=== PATIENT | female | born 1965 | race Caucasian/White ===

== ENCOUNTER → 2018-12-14 | Outpatient (REF) | payer OTHER | LOC: M LAB REF 12:41 | PROVIDERS: ATTEND Physician Assistant | DX: R30.0 Dysuria (principal) ==

== ENCOUNTER 2022-01-16 14:00 | Emergency (ER) | payer OTHER ==
[~2022-01-16] VITALS: Ht 170.2 cm; Wt 55.5 kg
[2022-01-16 14:37] LABS: BASO % 0.6 % (0.0-1.0); EOS # 0.1 10^3/uL (0.0-0.5); HEMOGLOBIN 14.1 g/dl (12.0-15.5); LYMPH # 1.7 10^3/uL (1.5-5.0); LYMPH % 26.5 % (24.0-44.0); MEAN CORPUSCULAR HEMOGLOBIN 31.1 pg (27.0-33.0); MEAN CORPUSCULAR HGB CONC 33.6 g/dl (32.0-36.5); MEAN CORPUSCULAR VOLUME 92.5 fl (80.0-96.0); MONO # 0.6 10^3/uL (0.0-0.8); MONO % 10.1 % (2.0-8.0); NEUTROPHILS # 3.8 10^3/uL (1.5-8.5); NEUTROPHILS % 60.5 % (36.0-66.0); PLATELET COUNT, AUTOMATED 272 10^3/uL (150-450); RED BLOOD COUNT 4.54 10^6/uL (4.00-5.40); WHITE BLOOD COUNT 6.4 10^3/uL (4.0-10.0)
[2022-01-16] MEDS ORDERED: NITROGLYCERIN 0.4 MG SUBL TABLET SL STA (14:44)
[2022-01-16] MEDS ORDERED: ASPIRIN 81 MG CHEW TABLET PO ONE (14:45)
[2022-01-16 15:06] LABS: CK-MB VALUE MASS 1.8 NG/ML (<3.6); MB/CK RELATIVE INDEX 3.91 (< OR =4)
[2022-01-16 15:14] LABS: ALBUMIN 3.8 GM/DL (3.2-5.2); ALT/SGPT 21 U/L (12-78); BILIRUBIN,DIRECT < 0.1 MG/DL (0.0-0.2); BILIRUBIN,TOTAL 0.3 MG/DL (0.2-1.0); BLOOD UREA NITROGEN 13 MG/DL (7-18); CALCIUM LEVEL 9.4 MG/DL (8.5-10.1); CARBON DIOXIDE LEVEL 29 MEQ/L (21-32); CHLORIDE LEVEL 107 MEQ/L (98-107); CREATININE FOR GFR 0.76 MG/DL (0.55-1.30); GLOMERULAR FILTRATION RATE > 60.0 (>51); GLUCOSE, FASTING 111 MG/DL (70-100); LIPASE 842 U/L (73-393); NT-PRO BNP 99 PG/ML (<125); POTASSIUM SERUM 4.1 MEQ/L (3.5-5.1); SODIUM LEVEL 139 MEQ/L (136-145); THYROID STIMULATING HORMONE 0.797 uIU/ML (0.358-3.740); TOTAL PROTEIN 6.4 GM/DL (6.4-8.2)
[2022-01-16] MEDS ORDERED: ISOVUE-370 76% 100ML VIAL As Ordered ONE (15:33)
[2022-01-16] MEDS ORDERED: NITROGLYCERIN 0.4 MG SUBL TABLET SL PRN (15:45)
[2022-01-16 15:47] VITALS: BP 148/84
[2022-01-16 16:16] LABS: CK-MB VALUE MASS 1.6 NG/ML (<3.6)
[2022-01-16 17:30] VITALS: BP 158/78
== END 2022-01-16 17:36 | disposition home or self-care (01) ==
LOC: M ED 14:00
DX: R07.9 Chest pain, unspecified (principal); R91.1 Solitary pulmonary nodule; E78.49 Other hyperlipidemia; D35.02 Benign neoplasm of left adrenal gland; I45.19 Other right bundle-branch block
CPT/HCPCS: 36415; 71045; 71275; 80048; 80076; 82550; 82553; 83690; 83880; 84443; 84484; 85025; 93005; 93041; 94760; 99285; Q9967

== ENCOUNTER → 2022-02-12 | Outpatient (REF) | payer OTHER | LOC: M WUC 20:06 | PROVIDERS: ATTEND Physician Assistant | DX: N30.01 Acute cystitis with hematuria (principal) ==

== ENCOUNTER → 2022-03-13 | Outpatient (CLI) | payer OTHER ==
[2022-03-13 11:00] LABS: BLOOD UREA NITROGEN 12 MG/DL (7-18); CALCIUM LEVEL 9.5 MG/DL (8.5-10.1); CARBON DIOXIDE LEVEL 29 MEQ/L (21-32); CHLORIDE LEVEL 107 MEQ/L (98-107); CREATININE FOR GFR 0.62 MG/DL (0.55-1.30); GLOMERULAR FILTRATION RATE > 60.0 (>51); GLUCOSE, FASTING 96 MG/DL (70-100); POTASSIUM SERUM 4.1 MEQ/L (3.5-5.1); SODIUM LEVEL 138 MEQ/L (136-145)
[2022-03-13 11:16] LABS: CORTISOL AM 1.7 UG/DL (4.3-22.4)
== END ==
LOC: M LAB 08:25
PROVIDERS: ATTEND Nurse Practitioner Family
DX: D35.02 Benign neoplasm of left adrenal gland (principal)

== ENCOUNTER → 2022-04-06 | Outpatient (REF) | payer OTHER ==
[2022-04-09 21:09] LABS: METANEPHRINE TOTAL URINE 70 ug/L (Undefined); METANEPHRINE URINE 133 ug/24 hr (36-209); NORMETANEPHRINE TOTAL URINE 133 ug/L (Undefined); NORMETANEPHRINE URINE 253 ug/24 hr (131-612)
== END ==
LOC: M LAB REF 09:36
PROVIDERS: ATTEND Nurse Practitioner Family
DX: D35.02 Benign neoplasm of left adrenal gland (principal)

== ENCOUNTER → 2022-04-11 | Outpatient (CLI) | payer OTHER ==
[~2022-04-11] MED LIST: ISOVUE-370 76% 100ML VIAL As Ordered ONE
== END ==
LOC: M RAD 14:57
PROVIDERS: ATTEND Nurse Practitioner Family
DX: D35.02 Benign neoplasm of left adrenal gland (principal); K76.89 Other specified diseases of liver; R91.1 Solitary pulmonary nodule
CPT/HCPCS: 74170; Q9967

== ENCOUNTER → 2022-07-23 | Outpatient (CLI) | payer OTHER ==
[2022-07-23 15:34] VITALS: BP 158/86
== END ==
LOC: M WHCPRO 14:45
PROVIDERS: ATTEND Surgery
DX: R92.8 Other abnormal and inconclusive findings on diagnostic imaging of breast (principal); N63.11 Unspecified lump in the right breast, upper outer quadrant
CPT/HCPCS: 19083; 77065; 88305; G0279

== ENCOUNTER → 2022-07-24 | Outpatient (CLI) | payer OTHER | LOC: M PLAIMG 11:28 | PROVIDERS: ATTEND Internal Medicine Pulmonary Disease | DX: R91.1 Solitary pulmonary nodule (principal); D35.02 Benign neoplasm of left adrenal gland; R91.8 Other nonspecific abnormal finding of lung field ==

== ENCOUNTER → 2022-07-30 | Outpatient (CLI) | payer OTHER ==
[2022-07-30 18:02] LABS: BLOOD UREA NITROGEN 13 MG/DL (9-23); CALCIUM LEVEL 9.7 MG/DL (8.5-10.1); CARBON DIOXIDE LEVEL 26 MMOL/L (20-31); CHLORIDE LEVEL 105 MMOL/L (98-107); CREATININE FOR GFR 0.66 MG/DL (0.55-1.30); GLOMERULAR FILTRATION RATE > 60.0 (>51); GLUCOSE, FASTING 90 MG/DL (60-100); POTASSIUM SERUM 4.5 MMOL/L (3.5-5.1); SODIUM LEVEL 139 MMOL/L (136-145)
== END ==
LOC: M PLALAB 13:29
PROVIDERS: ATTEND Surgery
DX: C50.911 Malignant neoplasm of unspecified site of right female breast (principal)

== ENCOUNTER → 2022-08-07 | Outpatient (CLI) | payer OTHER ==
[~2022-08-07] MED LIST changes: -ISOVUE-370 76% 100ML VIAL As Ordered ONE; +PROHANCE 279.3MG/ML 15ML VIAL As Ordered ONE
== END ==
LOC: M RAD 15:31
PROVIDERS: ATTEND Surgery
DX: C50.911 Malignant neoplasm of unspecified site of right female breast (principal)
CPT/HCPCS: A9576; C8908

== ENCOUNTER → 2022-08-11 | Outpatient (CLI) | payer OTHER | LOC: M PLAIMG 10:22 | PROVIDERS: ATTEND Physician Assistant Medical | DX: R59.9 Enlarged lymph nodes, unspecified (principal) ==

== ENCOUNTER → 2022-08-13 | Outpatient (CLI) | payer OTHER | LOC: M PLALAB 16:04 | PROVIDERS: ATTEND Surgery | DX: Z13.79 Encounter for other screening for genetic and chromosomal anomalies (principal); C50.911 Malignant neoplasm of unspecified site of right female breast; Z85.820 Personal history of malignant melanoma of skin ==

== ENCOUNTER → 2022-08-18 | Outpatient (CLI) | payer OTHER | LOC: M WHC 12:55 | PROVIDERS: ATTEND Surgery | DX: R92.8 Other abnormal and inconclusive findings on diagnostic imaging of breast (principal) ==

== ENCOUNTER → 2022-08-21 | Outpatient (CLI) | payer OTHER | LOC: M LABSMTC 11:39 | PROVIDERS: ATTEND Anesthesiology | DX: Z01.812 Encounter for preprocedural laboratory examination (principal); Z20.822 Contact with and (suspected) exposure to COVID-19 ==

== ENCOUNTER 2022-08-26 08:31 | Day surgery (SDC) | payer OTHER ==
[~2022-08-26] VITALS: Ht 170.2 cm; Wt 54.4 kg
[~2022-08-26 08:31] MED LIST changes: +HEPARIN SOD (PORCINE) 5000UNITS/ML 1ML VIAL/SYRINGE SQ ONE; -PROHANCE 279.3MG/ML 15ML VIAL As Ordered ONE; +ceFAZolin SOD 2 GM in IV 1 EA IV ONE
[2022-08-26] MEDS ORDERED: LR 1,000 ML IV SCH ×2 (09:05→15:30)
[2022-08-26] MEDS ORDERED: SCOPOLAMINE 1MG TRANSDERMAL PATCH TOP ONE (09:05)
[2022-08-26] MEDS ORDERED: fentaNYL 100 MCG/2 ML INJECTION As Ordered ONE (10:27)
[2022-08-26] MEDS ORDERED: MIDAZOLAM INJ 2MG/2ML VIAL As Ordered ONE (10:28)
[2022-08-26] MEDS ORDERED: propofoL 200 MG/20 ML VIAL As Ordered ONE (10:30)
[2022-08-26] MEDS ORDERED: SUCCINYLCHOLINE 100MG/5ML SYRINGE As Ordered ONE (10:30)
[2022-08-26] MEDS ORDERED: ROCURONIUM BROMIDE 50MG/5ML VIAL As Ordered ONE (10:31)
[2022-08-26] MEDS ORDERED: LIDOCAINE 2% 100MG/5ML SDV (FOR ANES.) As Ordered ONE (10:31)
[2022-08-26] MEDS ORDERED: ONDANSETRON 4MG 2ML VIAL As Ordered ONE (10:32)
[2022-08-26] MEDS ORDERED: LIDOCAINE 1% SDV 30ML VIAL As Ordered ONE (11:43)
[2022-08-26] MEDS ORDERED: BUPIVACAINE HCL 0.25% 30ML VIAL As Ordered ONE (11:43)
[2022-08-26] MEDS ORDERED: HYDROmorphone HCL 2MG/ML 1ML VIAL As Ordered ONE (12:36)
[2022-08-26] MEDS ORDERED: ACETAMINOPHEN 1000MG 100ML IV BAG As Ordered ONE (12:38)
[2022-08-26] MEDS ORDERED: ePHEDrine SULFATE 25 MG/5 ML(5MG/ML) SYRINGE As Ordered ONE (13:14)
[2022-08-26] MEDS ORDERED: HYDROMORPHONE HCL 0.5 MG/ 0.5 ML SYRINGE IV PRN (15:30)
[2022-08-26] MEDS ORDERED: fentaNYL 100 MCG/2 ML INJECTION IV PRN (15:30)
[2022-08-26] MEDS ORDERED: oxyCODONE 5MG TAB PO PRN (15:30)
[2022-08-26] MEDS ORDERED: ONDANSETRON 4MG 2ML VIAL IV PRN (15:30)
[2022-08-26] MEDS ORDERED: TRAM50TA2 PO (16:10)
[2022-08-26 17:52] VITALS: BP 134/77
[2022-09-09] MEDS ORDERED: LETR2.5T2 PO (15:26)
[2022-10-13] MEDS ORDERED: ONDA4TAB6 PO (16:06)
[2022-10-17] MEDS ORDERED: ONDA4TAB6 PO (16:12)
== END 2022-08-26 17:55 | disposition home or self-care (01) ==
LOC: M SDC 08:31
PROVIDERS: ATTEND Surgery
DX: D05.11 Intraductal carcinoma in situ of right breast (principal); Z87.891 Personal history of nicotine dependence; R91.1 Solitary pulmonary nodule; Z88.3 Allergy status to other anti-infective agents
CPT/HCPCS: 19285; 19301; 36415; 38525; 76942; 78195; 81025; 86850; 86900; 86901; 88305; 88307; A4648; A9520; J0131; J0330; J0690; J1100; J1170; J1644; J2250; J2405; J3010; S0020

== ENCOUNTER → 2022-09-09 | Outpatient (CLI) | payer OTHER ==
[~2022-09-09] MED LIST changes: -HEPARIN SOD (PORCINE) 5000UNITS/ML 1ML VIAL/SYRINGE SQ ONE; +LETR2.5T2 PO; +TRAM50TA2 PO; -ceFAZolin SOD 2 GM in IV 1 EA IV ONE
== END ==
LOC: M ONCR 11:11
PROVIDERS: ATTEND General Practice
DX: C50.411 Malignant neoplasm of upper-outer quadrant of right female breast (principal); Z80.8 Family history of malignant neoplasm of other organs or systems; Z87.891 Personal history of nicotine dependence; Z88.8 Allergy status to other drugs, medicaments and biological substances

== ENCOUNTER → 2022-09-26 | Outpatient (CLI) | payer OTHER | LOC: M WHC 13:49 | PROVIDERS: ATTEND Internal Medicine Medical Oncology | DX: M85.80 Other specified disorders of bone density and structure, unspecified site (principal); C50.912 Malignant neoplasm of unspecified site of left female breast; Z79.899 Other long term (current) drug therapy; M85.851 Other specified disorders of bone density and structure, right thigh; M85.852 Other specified disorders of bone density and structure, left thigh ==

== ENCOUNTER → 2022-10-07 | Outpatient (RCR) | payer OTHER | LOC: M ONCR 09-16 10:37 | PROVIDERS: ATTEND General Practice | DX: C50.411 Malignant neoplasm of upper-outer quadrant of right female breast (principal) ==

== ENCOUNTER 2022-10-24 15:39 | Outpatient (RCR) | payer OTHER ==
[~2022-10-24 15:39] MED LIST changes: +ONDA4TAB6 PO
== END 2022-11-04 ==
LOC: M ONCR 15:39
PROVIDERS: ATTEND General Practice
DX: C50.411 Malignant neoplasm of upper-outer quadrant of right female breast (principal)

== ENCOUNTER → 2023-02-04 | Outpatient (CLI) | payer OTHER ==
[~2023-02-04] MED LIST changes: +PROHANCE 279.3MG/ML 15ML VIAL As Ordered ONE
== END ==
LOC: M RAD 15:31
PROVIDERS: ATTEND Nurse Practitioner Women's Health
DX: R92.8 Other abnormal and inconclusive findings on diagnostic imaging of breast (principal); Z98.890 Other specified postprocedural states
CPT/HCPCS: A9576; C8908

== ENCOUNTER → 2023-04-28 | Outpatient (CLI) | payer OTHER ==
[~2023-04-28] MED LIST changes: +CALCCAP4 PO; +CITA10TA7 PO; +EXEM25TA PO; +FERR325T3 PO; -PROHANCE 279.3MG/ML 15ML VIAL As Ordered ONE
== END ==
LOC: M ONCR 09:26
PROVIDERS: ATTEND General Practice
DX: C50.412 Malignant neoplasm of upper-outer quadrant of left female breast (principal); N64.9 Disorder of breast, unspecified; Z71.2 Person consulting for explanation of examination or test findings; Z79.811 Long term (current) use of aromatase inhibitors; Z79.899 Other long term (current) drug therapy; Z88.1 Allergy status to other antibiotic agents; Z92.3 Personal history of irradiation

== ENCOUNTER → 2023-05-27 | Outpatient (CLI) | payer OTHER | LOC: M WHC 14:28 | PROVIDERS: ATTEND General Practice | DX: C50.411 Malignant neoplasm of upper-outer quadrant of right female breast (principal); N64.4 Mastodynia ==

== ENCOUNTER → 2023-06-12 | Outpatient (CLI) | payer OTHER | LOC: M LAB 10:06 | PROVIDERS: ATTEND Nurse Practitioner Family | DX: D35.02 Benign neoplasm of left adrenal gland (principal) ==

== ENCOUNTER 2023-07-01 15:45 | Outpatient (RCR) | payer OTHER | END 2023-07-07 | LOC: M PT 15:45 | PROVIDERS: ATTEND Internal Medicine Medical Oncology | DX: M79.89 Other specified soft tissue disorders (principal) ==

== ENCOUNTER → 2023-08-06 | Outpatient (RCR) | payer OTHER ==
[~2023-08-06] MED LIST changes: +BIOT10009 PO; +CIDA500T2 PO
== END ==
LOC: M PT 07-13 15:45
PROVIDERS: ATTEND Internal Medicine Medical Oncology
DX: M25.811 Other specified joint disorders, right shoulder (principal)

== ENCOUNTER → 2023-08-19 | Outpatient (CLI) | payer OTHER | LOC: M WHC 11:56 | PROVIDERS: ATTEND Nurse Practitioner Women's Health | DX: N64.89 Other specified disorders of breast (principal); N63.10 Unspecified lump in the right breast, unspecified quadrant ==

== ENCOUNTER 2023-08-21 11:37 | Day surgery (SDC) | payer OTHER ==
[~2023-08-21] VITALS: Ht 170.2 cm; Wt 52.4 kg
[~2023-08-21 11:37] MED LIST changes: +NS 1,000 ML IV ONE
[2023-08-21] MEDS ORDERED: fentaNYL 100 MCG/2 ML INJECTION As Ordered ONE (14:05)
[2023-08-21] MEDS ORDERED: LIDOCAINE 2% 100MG/5ML SDV (FOR ANES.) As Ordered ONE (14:05)
[2023-08-21] MEDS ORDERED: ONDANSETRON 4MG 2ML VIAL As Ordered ONE (14:05)
[2023-08-21] MEDS ORDERED: propofoL 200 MG/20 ML VIAL As Ordered ONE (14:05)
[2023-08-21 14:25] VITALS: TEMP 97.1
[2023-08-21 14:41] VITALS: BP 121/68; O2SAT 100
== END 2023-08-21 14:58 | disposition home or self-care (01) ==
LOC: M OPP 11:37
PROVIDERS: ATTEND Internal Medicine Gastroenterology
DX: D50.9 Iron deficiency anemia, unspecified (principal); D12.5 Benign neoplasm of sigmoid colon; D12.8 Benign neoplasm of rectum; K57.30 Diverticulosis of large intestine without perforation or abscess without bleeding; K64.8 Other hemorrhoids; I10 Essential (primary) hypertension; Z79.899 Other long term (current) drug therapy; Z85.3 Personal history of malignant neoplasm of breast; Z87.891 Personal history of nicotine dependence
CPT/HCPCS: 43239; 45385; 88305; J2405; J3010

== ENCOUNTER 2023-08-27 15:45 | Outpatient (RCR) | payer OTHER ==
[~2023-08-27 15:45] MED LIST changes: -NS 1,000 ML IV ONE
== END 2023-09-06 ==
LOC: M PT 15:45
PROVIDERS: ATTEND Internal Medicine Medical Oncology
DX: M25.811 Other specified joint disorders, right shoulder (principal)

== ENCOUNTER 2023-09-09 14:24 | Outpatient (RCR) | payer OTHER | END 2023-10-07 | LOC: M PT 14:24 | PROVIDERS: ATTEND Internal Medicine Medical Oncology | DX: M25.811 Other specified joint disorders, right shoulder (principal) ==

== ENCOUNTER → 2023-10-29 | Outpatient (CLI) | payer OTHER | LOC: M ONCR 14:55 | PROVIDERS: ATTEND General Practice | DX: C50.411 Malignant neoplasm of upper-outer quadrant of right female breast (principal); Z79.811 Long term (current) use of aromatase inhibitors; Z79.899 Other long term (current) drug therapy; Z87.891 Personal history of nicotine dependence; Z88.1 Allergy status to other antibiotic agents; Z92.3 Personal history of irradiation ==

== ENCOUNTER → 2024-02-22 | Outpatient (CLI) | payer OTHER ==
[~2024-02-22] MED LIST changes: +ONDA-282 PO; -ONDA4TAB6 PO
== END ==
LOC: M WHC 13:52
PROVIDERS: ATTEND Nurse Practitioner
DX: Z85.3 Personal history of malignant neoplasm of breast (principal); R92.333 Mammographic heterogeneous density, bilateral breasts
CPT/HCPCS: 77066; G0279

== ENCOUNTER → 2024-06-24 | Outpatient (REF) | payer OTHER | LOC: M LAB REF 17:18 | PROVIDERS: ATTEND Internal Medicine Endocrinology, Diabetes & Metabolism | DX: E04.2 Nontoxic multinodular goiter (principal) ==

== ENCOUNTER → 2024-07-15 | Outpatient (CLI) | payer OTHER ==
[2024-07-15 08:55] LABS: BLOOD UREA NITROGEN 13 MG/DL (9-23); CARBON DIOXIDE LEVEL 29 MMOL/L (20-31); CHLORIDE LEVEL 108 MMOL/L (98-107); CREATININE FOR GFR 0.63 MG/DL (0.55-1.30); GLOMERULAR FILTRATION RATE > 60.0 (>51); GLUCOSE, FASTING 103 MG/DL (60-100); POTASSIUM SERUM 4.5 MMOL/L (3.5-5.1); PTH INTACT 234.9 PG/ML (18.5-88.0); SODIUM LEVEL 138 MMOL/L (136-145)
[2024-07-15 08:57] LABS: TOTAL 25(OH) VITAMIN D 37.7 NG/ML (20.0-100.0)
[2024-07-15 08:59] LABS: CORTISOL AM 1.7 UG/DL (4.3-22.4)
[2024-07-16 06:09] LABS: T P ELECTROPHORESIS SO 6.1 g/dL (6.1-8.1)
== END ==
LOC: M LAB 07:33
PROVIDERS: ATTEND Nurse Practitioner Family
DX: E83.52 Hypercalcemia (principal); D35.02 Benign neoplasm of left adrenal gland

== ENCOUNTER → 2024-08-25 | Outpatient (CLI) | payer OTHER | LOC: M PLAIMG 13:34 | PROVIDERS: ATTEND Internal Medicine Pulmonary Disease | DX: R91.8 Other nonspecific abnormal finding of lung field (principal) ==

== ENCOUNTER → 2024-09-13 | Outpatient (CLI) | payer OTHER | LOC: M RAD 09:46 | PROVIDERS: ATTEND Nurse Practitioner Family | DX: E83.52 Hypercalcemia (principal) | CPT/HCPCS: 78070; 78803; A9500 ==

== ENCOUNTER → 2024-11-01 | Outpatient (CLI) | payer OTHER ==
[~2024-11-01] MED LIST changes: +ONDA-84 PO
== END ==
LOC: M ONCR 14:56
PROVIDERS: ATTEND General Practice
DX: Z08 Encounter for follow-up examination after completed treatment for malignant neoplasm (principal); Z85.3 Personal history of malignant neoplasm of breast; L59.8 Other specified disorders of the skin and subcutaneous tissue related to radiation; E21.0 Primary hyperparathyroidism; R11.0 Nausea; Z98.890 Other specified postprocedural states; Z92.3 Personal history of irradiation; Z79.811 Long term (current) use of aromatase inhibitors; Z87.891 Personal history of nicotine dependence; Z79.899 Other long term (current) drug therapy; Z88.8 Allergy status to other drugs, medicaments and biological substances

== ENCOUNTER → 2024-12-27 | Outpatient (CLI) | payer OTHER | LOC: M WHC 14:39 | PROVIDERS: ATTEND Internal Medicine Medical Oncology | DX: M81.0 Age-related osteoporosis without current pathological fracture (principal) ==

== ENCOUNTER → 2025-07-04 | Outpatient (CLI) | payer OTHER ==
[~2025-07-04] MED LIST changes: +CALC1TAB63 PO
== END ==
LOC: M RAD 09:34
PROVIDERS: ATTEND Surgery
DX: N63.11 Unspecified lump in the right breast, upper outer quadrant (principal); Z85.3 Personal history of malignant neoplasm of breast

== ENCOUNTER → 2025-07-10 | Outpatient (CLI) | payer OTHER ==
[2025-07-10 09:15] LABS: FREE T4 1.04 NG/DL (0.89-1.76)
[2025-07-10 13:44] LABS: CORTISOL AM 1.8 UG/DL (4.3-22.4)
== END ==
LOC: M LAB 07:02
PROVIDERS: ATTEND Nurse Practitioner Family
DX: E04.1 Nontoxic single thyroid nodule (principal); D35.02 Benign neoplasm of left adrenal gland

== ENCOUNTER → 2025-07-26 | Outpatient (CLI) | payer OTHER | LOC: M WHC 09:02 | PROVIDERS: ATTEND Student in an Organized Health Care Education/Training Program | DX: C50.919 Malignant neoplasm of unspecified site of unspecified female breast (principal); K76.89 Other specified diseases of liver ==

== ENCOUNTER → 2025-08-16 | Outpatient (CLI) | payer OTHER | LOC: M RAD 10:19 | PROVIDERS: ATTEND Nurse Practitioner Family | DX: E04.1 Nontoxic single thyroid nodule (principal) ==

== ENCOUNTER → 2025-08-28 | Outpatient (CLI) | payer OTHER | LOC: M PLAIMG 10:23 | PROVIDERS: ATTEND Internal Medicine Pulmonary Disease | DX: R91.8 Other nonspecific abnormal finding of lung field (principal) ==